=== PATIENT | female | born 1970 | race Caucasian/White ===

== ENCOUNTER → 2020-08-07 | Emergency (ER) | payer OTHER ==
[~2020-08-07] VITALS: Ht 165.1 cm; Wt 77.1 kg
[2020-08-07 16:50] VITALS: BP 168/102
== END ==
LOC: ER 15:20
DX: J06.9 Acute upper respiratory infection, unspecified (principal); Z88.8 Allergy status to other drugs, medicaments and biological substances; Z88.2 Allergy status to sulfonamides

== ENCOUNTER → 2020-08-08 | Emergency (ER) | payer OTHER | LOC: ER 06:55 | DX: R05 Cough (principal); Z53.21 Procedure and treatment not carried out due to patient leaving prior to being seen by health care provider ==